=== PATIENT | male | born 1985 | race Caucasian/White ===

== ENCOUNTER 2018-04-18 20:38 | Emergency (ER) | payer OTHER ==
[2018-04-18 20:57] VITALS: BP 159/97
[2018-04-18] MEDS ORDERED: Azithromycin TAB* 250 MG PO ONE (21:17)
[2018-04-18] MEDS ORDERED: cefTRIAXone VIAL(*) 250 MG VIAL IM ONE (21:17)
[2018-04-18] MEDS ORDERED: Lidocaine 1%* 5 ML VIAL ONE (21:25)
--- NOTE | 2018-04-20 16:48 | PN ---
Progress Note - Progress Note Date of Service: 04/20/18 Note: Patient's gonorrhea and Chlamydia came back negative. Please informed patient of results. No further action required.
--- NOTE | 2018-04-28 12:55 | UC ---
Elijah Loza Elizabeth, scribed for Prosper Casey MD on 04/18/18 at 2120 . Complaint Male HPI - HPI Summary HPI Summary: This patient is a 32 year old M presenting to [facility] requesting testing and treatment for ghonorrhea. The patient reports that he had sex 1.5 weeks ago with a woman who was diagnosed with ghonorrhea. The patient rates the pain 0/10 in severity. Patient denies penile discharge or any complaints. - History of Current Complaint Chief Complaint: UCGU Stated Complaint: PERSONAL Time Seen by Provider: 04/18/18 21:06 Hx Obtained From: Patient Onset/Duration: Lasting Weeks - 1.5 weeks Severity Currently: None Pain Intensity: 0 Pain Scale Used: 0-10 Numeric Location: None Aggravating Factor(s): Nothing Alleviating Factor(s): Nothing Associated Signs And Symptoms: Negative: Penile Discharge - Allergies/Home Medications Allergies/Adverse Reactions: Allergies Allergy/AdvReac Type Severity Reaction Status Date / Time No Known Allergies Allergy Verified 04/18/18 20:58 Home Medications: Home Medications NK [No Home Medications Reported] 04/18/18 [History Confirmed 04/18/18] PMH/Surg Hx/FS Hx/Imm Hx Previously Healthy: Yes - Surgical History Surgical History: Yes Surgery Procedure, Year, and Place: 2009 Tonsilectomy [place], dental implants - Family History Known Family History: Positive: None - patient denies FHx - Social History Alcohol Use: Weekly Alcohol Amount: FEW DRINKS/WEEK Substance Use Type: None Smoking Status (MU): Never Smoked Tobacco Have You Smoked in the Last Year: No Review of Systems Constitutional: Negative - NEGATIVE FEVER ENT: Negative - NEGATIVE EPISTAXIS Gastrointestinal: Negative - NEGATIVE VOMITING Genitourinary: Negative - NEGATIVE PENILE DISCHARGE, NEGATIVE PENILE PAIN All Other Systems Reviewed And Are Negative: Yes Physical Exam - Summary Physical Exam Summary: VITAL SIGNS: Reviewed. GENERAL: Patient is a well-developed and nourished MALE who is lying comfortable in the stretcher. Patient is not in any acute respiratory distress. HEAD AND FACE: Normocephalic EYES: PERRLA, EOMI x 2. EARS: Hearing grossly intact. MOUTH: Oropharynx within normal limits. NECK: Supple, trachea is midline, no adenopathy, no JVD, no carotid bruit. CHEST: Symmetric, no tenderness at palpation LUNGS: Clear to auscultation bilaterally. No wheezing or crackles. CVS: Regular rate and rhythm, S1 and S2 present, no murmurs or gallops appreciated. ABDOMEN: Soft, non-tender. Bowel sounds are normal. No abdominal abnormal pulsations. EXTREMITIES: Full ROM in all major joints, no edema, no cyanosis or clubbing. NEURO: Alert and oriented x 3. No acute neurological deficits. Speech is normal and follows commands. SKIN: Dry and warm Triage Information Reviewed: Yes Vital Signs: Initial Vital Signs Temp 98.3 F 04/18/18 20:53 Pulse 75 04/18/18 20:53 Resp 16 04/18/18 20:53 BP 159/97 04/18/18 20:53 Pulse Ox 100 04/18/18 20:53 Vital Signs Reviewed: Yes Complaint Male Course/Dx - Course Course Of Treatment: GC and Chlamydia cultures in urine were send. Patient given Rocephin and Azithromycin treatment. F/U with PCP. - Differential Dx/Diagnosis Provider Diagnoses: STI Discharge - Sign-Out/Discharge Documenting (check all that apply): Discharge/Admit/Transfer - Discharge Plan Condition: Stable Disposition: HOME Discharge Disposition Comment: discharge home Patient Education Materials: Sexually Transmitted Diseases (ED) Referrals: Saira Dowd MD [Primary Care Provider] - - Billing Disposition and Condition Condition: STABLE Disposition: Home The documentation as recorded by the Elijah buck Elizabeth accurately reflects the service I personally performed and the decisions made by , Prosper Casey MD.
== END 2018-04-18 21:45 | disposition home or self-care (01) ==
LOC: UCEAST 20:38
DX: A54.9 Gonococcal infection, unspecified (principal); A56.8 Sexually transmitted chlamydial infection of other sites
CPT/HCPCS: 87491; 87591; 96372; 99212; A9270-GY; G0463; J0696